=== PATIENT | male | born 1990 | race Caucasian/White ===

== ENCOUNTER 2022-01-04 17:52 | Emergency (ER) | payer OTHER, SELFPAY ==
[2022-01-04 17:59] VITALS: PULSE 59; RESP 18; TEMP 37; O2SAT 97; BMI 35.2
--- NOTE | 2022-01-04 18:58 | ED.GENADULT ---
HPI - General Adult General Chief complaint: General Medical Stated complaint: Chemical Burn (work related) Time Seen by Provider: 01/04/22 18:49 Source: patient Mode of arrival: ambulatory Limitations: no limitations History of Present Illness HPI narrative: 31-year-old male presents to the emergency department with a chemical burn that occurred at work to his left lower extremity to the top of his foot. Patient tells me that he still the cleaning chemical on to his left lower extremity that went into his boot and he now reports burning at the site this occurred approximately 3-4 hours ago. He tells me he is unsure right chemical this was however it did contain bleach. He reports there is a small area of irritation to the top of his foot. The chemical did not burn through his boot. He has normal sensation to all toes able to move them. He denies chest pain, shortness of breath, nausea, vomiting, fevers, chills. He tells me his work wanted him evaluated in the is why he is here. After this happened he immediately clean the area with water. Onset (ago): hour(s) (4) Location: left and lower extremity (foot ) Radiation: non-radiation Severity: mild Quality: burning Pain Consistency: constant Relieving factors: none Exacerbating factors: none Associated symptoms: denies other symptoms Treatments prior to arrival: none Related Data Allergies Allergy/AdvReac Type Severity Reaction Status Date / Time No Known Allergies Allergy Unverified 08/04/20 16:01 [No Known Allergies*] Review of Systems Review of Systems: Constitutional : No Fever, No Chills, Cardiovascular : No Chest Pain, No SOB Respiratory : No Dyspnea Gastrointestinal : No abdominal pain Musculoskeletal : No Joint Swelling Skin : + rash, No skin laceration Neuro : No Weakness, No Numbness Psych : No SI/HI Yes all other systems are reviewed and are negative PMFSH Past Medical History Attestation statement: The following information was validated with the patient. Source: old records reviewed and nursing notes reviewed Medical History No pertinent past medical history Physical Exam ED Vital Signs: Vital Signs - 24 hr 01/04/22 17:59 Temperature 98.6 F Pulse Rate 59 Respiratory Rate 18 Pulse Oximetry 97 BMI result Body Mass Index 35.2 VSS Appearance: Alert.? Oriented X3.? No acute distress.? Head: Normocephalic, atraumatic, no step-offs or deformities Eyes: Pupils equal, round and reactive to light.? ENT: Pharynx normal.? Neck: Normal inspection.? Neck supple.? CVS: Normal heart rate and rhythm.? Pulses normal.? Respiratory: No respiratory distress.? Breath sounds normal.? Abdomen: Soft and nontender.? Skin: Skin warm and dry.? Normal skin color.? Normal skin turgor.?+ erythema to top of left foot (image below) Extremities: No lower extremity edema.? No calf ttp. 5/5 strength to bilateral upper and lower extremities Neuro: Oriented X 3.? No motor deficit.? No sensory deficit. Course Reevaluation(s) Reevaluation #1: Bacitracin applied to area and bandaid applied. Patient will be discharged home, he should follow-up with his PCP and were connection. Comfortable with discharge Time: 19:04 Medical Decision Making [facility] Narrative Medical decision making narrative: 1900 31 yo m no pmhx presents with a chemical burn to LLE (top of foot) that occured at work with chemical containing bleach. Occured 3-4 hours prior to arrival, they wanted him evaluated PE significant for discoloration to top of left foot, images in chart Plan; clean with saline Medical Records Medical records reviewed: Yes I reviewed the patient's medical records. Lab Data Lab results reviewed: Yes I reviewed the patient's lab results. Critical Care Time Critical Care Time Critical Care Time: No Discharge Plan Discharge Clinical Impression: Chemical burn, Work related injury Patient Disposition: Home, Self-Care Instructions: Chemical Skin Burn (ED) Additional Instructions: Take your medications as prescribed. If you were prescribed antibiotics today, it is important that you take your medication to their entirety, do not skip any doses, do not finish them early. Follow-up with your primary care provider this week. follow-up with the were connection. Phone number is [phone]. Apply cold compresses to the area. Return to the emergency department with new or worsening symptoms. In case of emergency call 911 Referrals: Physician,Unknown J [Primary Care Provider] - 2 days Stand Alone Forms: Work/School Release
== END 2022-01-04 19:38 | disposition home or self-care (01) ==
LOC: HO.ED 19:27
PROVIDERS: Emergency Provider Emergency Medicine Emergency Medical Services
DX: T25.422A Corrosion of unspecified degree of left foot, initial encounter (principal); T65.91XA Toxic effect of unspecified substance, accidental (unintentional), initial encounter; T32.0 Corrosions involving less than 10% of body surface; M79.672 Pain in left foot; Y93.9 Activity, unspecified; Y92.9 Unspecified place or not applicable; Y99.0 Civilian activity done for income or pay
CPT/HCPCS: 99283